=== PATIENT | female | born 1940 | race African-American/Black ===

== ENCOUNTER → 2016-09-14 | Outpatient (CLI) | payer MEDICARE, MEDICAID | LOC: RAD 13:04 | PROVIDERS: ATTEND Internal Medicine Geriatric Medicine | DX: J32.0 Chronic maxillary sinusitis (principal) | CPT/HCPCS: 70486 ==

== ENCOUNTER → 2017-04-08 | Outpatient (CLI) | payer MEDICARE, MEDICAID ==
--- NOTE | 2017-04-08 09:56 | ST Modified Barium Swallow ---
Recommendation - Recommendations Recommendations: 1) Recommend continue current diet. SUMMARY: Pt presents WNL oral and pharyngeal swallow, however RA notes prominent cricopharyngeous. No penetration or aspiration observed during MBSS. No radiographic findings of residuals observed on any consistency. At end of study pt observed to cough heavily and request emisis bag. Contents observed to be clear, did not contain whitish color of barium, brown color of pudding or gabbie cracker. Medical Diagnoses - Medical Diagnoses Medical Diagnosis Description & ICD-10 Code(s): dysphagia Other Medical Diagnoses/Co-Morbidities: Pacemaker placement and difibrillator placement (09/05/2012). COPD. Urinary incontinence. Reflux. WI. Hypothyroidism. Pneumonia states most recent 7-8 years ago. 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 Sinus issues- pt reports swollen. - ICD-10 Tx Diagnosis Coding (1) Dysphagia, pharyngoesophageal phase ICD-10 Code(s): R13.14 - DYSPHAGIA, PHARYNGOESOPHAGEAL PHASE ST Modified Barium Swallow - General Date: 04/08/17 Referring Physician: Dr Sanders Risks/Precautions: None Date of Onset: 04/08/14 Reason for Referral: dysphagia - History History obtained from: Patient -: Medical - Pt reports coughing and choking on solids and liquids with every meal. Pt reports globus sensation in lower neck. Pt reports "cough up slime" which she states is always "clear." Pt reports most recent PNA "7-8 years ago" and reports hx of bronchitis. Pt reports onset of symptoms approximately 4 years ago with worsening symptoms. Pt reports PMHx: "enlarged right sinus", thyroid surgery resulting in "clipping of vocal cord", WI, reflux, COPD. Pt presents with harsh vocal quality at baseline. Medications: Pt notes unable to recall all medications; reports synthroid, "3 different heart medications, acid reflux medication" pt then stated "thats all I know, but I have a total of 11 medications. Allergies: Penicillin. Dilantin. - Functional Status Prior Functional Status: INDEPENDENT: feeding Current Functional Limitations: feeding - Subjective Patient/caregiver goal(s): safe swallow Cognitive-Linguistic Function: WNL Speech Intelligibility: WNL Current Nutritional Means: PO Current PO diet: Regular Current symptoms: Coughing, c/o Globus sensation Pain: 0/5 - Objective Assessment: Upright, Left Lateral - Food Trials Used Food trials used: Thin liquids, Pureed, Regular The patient: Was Able to Self Feed - Oral-Motor Skills Velo-pharyngeal function: Unremarkable Laryngeal Function: Volitional Cough, Volitional Swallow - Assessment Oral prep: Normal Labial closure: Adequate Leakage: None Mastication: Adequate Lingual Movement: Normal Oral stage: Normal for this Procedure - Pharyngeal Stage Initiation of Pharyngeal Stage Reflex: Normal Decreased laryngeal elevation: No Reduced Velopharyngeal Closure: no Reduced pressure generation: No reduced tongue-based retraction: No Pre-swallow pooling in valleculae: None Pre-Swallow pooling in pyriforms: None Reduced Thyro-Hyoid approximation: No Reduced epiglottic excursion: No Reduced pharyngeal peristalsis/contraction: No Post-swallow residulas vallecular: None Post-Swallow residuals in pyriforms: None - Esophageal Stage Esophageal Stage: Per RA, prominent cricopharyngeous. - Fall Risk Assessment Medications/Conditions that increase fall risks include: Antidepressants, sedatives, anti-arrhythmic, diuretic, benzodiazipenes, neuroleptics. BP regulation problems, cardiac problems, balance or gait deficits, neurological problems. Is patient considered at risk for falls: no Fall Risk Actions Taken: No action needed - Behavioral Observations During evaluation process patient: was pleasant, was cooperative, able to answer questions, provided medical history - Treatment / Educational Needs: Treatment/Education Needs: Treatment consisted of patient education on the role of the Speech Pathologist. Patient's plan of care and golas were communicated as well as scheduling and attendance policies. Recommendations for initial home program were shared. Patient demonstrated understanding and verbalized agreement. - Impression/Summary Laryngeal Penetration: No Tracheal Aspiration: no Risk of Aspiration: Minimal - Recommendations NPO: no Solid diet recommendations: Regular Liquid Diet Modification: Thin Strict aspiration precautions: No Pt/Family education and followup with MD: Yes Dysphagia therapy with FLITCH HANGER: no Supervision: Independent Information, Precautions and Recommendations: Patient (Verbal) - Time Total Time: 25 - Plan of Care Strategies to optimize patient understanding include:: ongoing assessment of educational needs, implementation of educational strategies, and re-education. - - -: Thank you for the opportunity to work with this patient and his/her family. Should you have any questions about this patient's plan or progress, I can be reached at [phone]. Charge G Code? - - -: Yes ST F.L. Impairment Category - Rationale Based On Rationale Based On: Clin Find., Obj Measures - Swallowing Current G8996: CI 1-19% Impaired Goal G8997: CI 1-19% Impaired Discharge G8998: CI 1-19% Impaired
--- NOTE | 2017-04-08 18:27 | RADIOLOGY REPORT (SQ) ---
EXAM DESCRIPTION: YUSRA SWALLOW COMPLETED DATE/TIME: 04/08/2017 9:35 am REASON FOR STUDY: DYSPHAGIA R13.10 DYSPHAGIA, UNSPECIFIED COMPARISON: None. TECHNIQUE: Videofluoroscopic swallowing examination was performed in conjunction with speech patholo gy. Videofluoroscopic imaging was obtained and reviewed and these are the findings: RADIATION DOSE: TOTAL FLUOROSCOPY TIME: 1 minutes 2 seconds 1 fluoroscopy image saved to PACS. LIMITATIONS: None FINDINGS: The patient was brought into the fluoro room and placed upright on a modified barium swall ow chair. The patient was then given multiple consistencies mixed with barium to swallow under live fluoroscopic video guidance. According to the Speech Pathologist there was no laryngeal penetration or tracheal aspiration. Normal oral and pharyngeal transit time observed. No significant post swall ow residual seen. There is note of a prominent cricopharyngeus impression, posterior aspect of cervi meliton esophagus which did not significantly impede the swallow during the study. Please see speech pat hology report for further details and recommendations. IMPRESSION: NO EVIDENCE OF LARYNGEAL PENETRATION OR TRACHEAL ASPIRATION. CRICOPHARYNGEAL HYPERTROPH Y. PLEASE SEE SPEECH PATHOLOGIST REPORT FOR OTHER FINDINGS AND RECOMMENDATIONS. COMMENT: Quality ID [id number]: Final reports for procedures using fluoroscopy that document radiation exp osure indices, or exposure time and number of fluorographic images (if radiation exposure indices are not available) TECHNICAL DOCUMENTATION: JOB ID: [id number] [employer]- All Rights Reserved
== END ==
LOC: RAD 08:39
PROVIDERS: ATTEND Internal Medicine Pulmonary Disease
DX: R13.14 Dysphagia, pharyngoesophageal phase (principal)
CPT/HCPCS: 74230; 92611; G8996; G8997; G8998

== ENCOUNTER → 2017-06-21 | Outpatient (CLI) | payer MEDICARE, MEDICAID ==
--- NOTE | 2017-06-22 17:53 | WOMENS IMAGING REPORT ---
EXAM DESCRIPTION: 3D SCREENING MAMMO BILAT COMPLETED DATE/TIME: 06/21/2017 9:41 am REASON FOR STUDY: ROUTINE SCREENING; Z12.31 Z12.31 ENCNTR SCREEN MAMMOGRAM FOR MALIGNANT NEOPLASM O F KEV COMPARISON: Multiple since 2008 TECHNIQUE: Standard craniocaudal and mediolateral oblique views of each breast recorded using digita l acquisition and breast tomosynthesis. LIMITATIONS: None. FINDINGS: Findings present which are benign by mammographic criteria. No suspicious masses, calcifi cations or architectural distortion. Pertinent benign findings: Stable bilateral mammographic nodules and calcifications. Pacemaker over the left upper outer quadrant Read with the assistance of CAD. .[facility] - R2 Cenova Version 1.3 .[facility] Imaging - R2 Cenova Version 1.3 .[facility] - R2 Cenova Version 2.4 .[facility] [place] - R2 Cenova Version 2.4 .[facility] - R2 Hand Driller Version 9.2 Benign mammographic findings may include one or more of the following: Smooth masses, popcorn/rim/co arse calcifications, asymmetries, post-procedure changes, and lesions with long-standing stability. IMPRESSION: BENIGN MAMMOGRAPHIC FINDINGS. BIRADS 2 BREAST DENSITY: b. There are scattered areas of fibroglandular density. BIRAD: 2 BENIGN FINDING(S) RECOMMENDATION: RECOMMENDATION: ROUTINE SCREENING Please continue yearly bilateral screening tomosynthesis in June 2018 COMMENT: The patient has been notified of the results by letter per MQSA requirements. Additional no tification policies are in place for contacting patient with suspicious or incomplete findings. Quality ID #225: The [employer] recommends an annual screening mammogram for women aged 40 years or over. This facility utilizes a reminder system to ensure that all patients receive reminder letters, and/or direct phone calls for appointments. This includes reminders for routine scr eening mammograms, diagnostic mammograms, or other Breast Imaging Interventions when appropriate. Th is patient will be placed in the appropriate reminder system. The [employer] (ACR) has developed recommendations for screening MRI of the breast s in certain patient populations, to be used in conjunction with mammography. Breast MRI surveillanc e may be appropriate for women with more than 20% lifetime risk of developing breast cancer as deter mined by genetic testing, significant family history of the disease, or history of mantle radiation f or Hodgkins Disease. ACR Practice Guidelines 2008. DBT Technology DBT is a type of tomographic mammography. With conventional mammography, overlapping breast tissue ma y make lesions difficult to detect, even with good compression. DBT uses an x-ray tube that rotates a round the breast, taking images at different angles. These images are then combined to create thin sl ices of the breast that the radiologist can view as a 3D reconstruction. The Hologic unit can perform full-field digital mammograms (2D imaging); or DBT (3D imaging); or both, in a combination mode that quickly performs both the mammogram and the tomosynthesis scan while the breast is still compressed. PQRS 6045F: Fluoroscopic imaging is not utilized for breast tomosynthesis. TECHNICAL DOCUMENTATION: FINDING NUMBER: (1) ASSESSMENT: (1) JOB ID: [id number] [employer]- All Rights Reserved
== END ==
LOC: WI 10:05
PROVIDERS: ATTEND Internal Medicine Geriatric Medicine
DX: Z12.31 Encounter for screening mammogram for malignant neoplasm of breast (principal)
CPT/HCPCS: 77063; G0202; 77067

== ENCOUNTER → 2018-06-22 | Outpatient (CLI) | payer MEDICARE, MEDICAID ==
--- NOTE | 2018-06-22 12:18 | WOMENS IMAGING REPORT ---
EXAM DESCRIPTION: 3D SCREENING MAMMO BILAT COMPLETED DATE/TIME: 06/22/2018 11:12 am REASON FOR STUDY: BILATERAL SCREENING MAMMO 3 D/Z12.31 Z12.31 ENCNTR SCREEN MAMMOGRAM FOR MALIGNANT NEOPLASM OF KEV COMPARISON: [id number] TECHNIQUE: Standard craniocaudal and mediolateral oblique views of each breast recorded using digita l acquisition and breast tomosynthesis. LIMITATIONS: Battery pack left. FINDINGS: No masses, calcifications or architectural distortion. No areas of suspicion. Read with the assistance of CAD. .[facility] - R2 Cenova Version 1.3 .[facility] Imaging - R2 Cenova Version 1.3 .[facility] - R2 Cenova Version 2.4 .[facility] [place] - R2 Cenova Version 2.4 .[facility] - R2 Spinal Surgeon Version 9.2 IMPRESSION: NORMAL MAMMOGRAM. BIRADS 1. BREAST DENSITY: b. There are scattered areas of fibroglandular density. BIRAD: 1 NEGATIVE RECOMMENDATION: ROUTINE SCREENING COMMENT: The patient has been notified of the results by letter per SA requirements. Additional no tification policies are in place for contacting patient with suspicious or incomplete findings. Quality ID #225: The [employer] recommends an annual screening mammogram for women aged 40 years or over. This facility utilizes a reminder system to ensure that all patients receive reminder letters, and/or direct phone calls for appointments. This includes reminders for routine scr eening mammograms, diagnostic mammograms, or other Breast Imaging Interventions when appropriate. Th is patient will be placed in the appropriate reminder system. The [employer] (ACR) has developed recommendations for screening MRI of the breast s in certain patient populations, to be used in conjunction with mammography. Breast MRI surveillanc e may be appropriate for women with more than 20% lifetime risk of developing breast cancer as deter mined by genetic testing, significant family history of the disease, or history of mantle radiation f or Hodgkins Disease. ACR Practice Guidelines 2008. DBT Technology DBT is a type of tomographic mammography. With conventional mammography, overlapping breast tissue ma y make lesions difficult to detect, even with good compression. DBT uses an x-ray tube that rotates a round the breast, taking images at different angles. These images are then combined to create thin sl ices of the breast that the radiologist can view as a 3D reconstruction. The [employer] unit can perform full-field digital mammograms (2D imaging); or DBT (3D imaging); or both, in a combination mode that quickly performs both the mammogram and the tomosynthesis scan while the breast is still compressed. PQRS 6045F: Fluoroscopic imaging is not utilized for breast tomosynthesis. TECHNICAL DOCUMENTATION: FINDING NUMBER: (1) ASSESSMENT: (1) JOB ID: [id number] [employer]- All Rights Reserved Reading location - IP/workstation name: [email or web address]
== END ==
LOC: WI 10:03
PROVIDERS: ATTEND Internal Medicine Geriatric Medicine
DX: Z12.31 Encounter for screening mammogram for malignant neoplasm of breast (principal)
CPT/HCPCS: 77063; 77067

== ENCOUNTER → 2018-06-27 | Outpatient (CLI) | payer MEDICARE, MEDICAID | LOC: OD 09:23 | PROVIDERS: ATTEND Otolaryngology | DX: J30.9 Allergic rhinitis, unspecified (principal) | CPT/HCPCS: 36415; 82785; 86003 ==

== ENCOUNTER → 2018-08-22 | Day surgery (SDC) | payer MEDICARE, MEDICAID ==
[~2018-08-22] MED LIST: ALBUTEROL SULFATE 0.083% NEB 2.5 MG/3 ML AMPUL NEB ONE; PROPOFOL INJ 200 MG/20 ML VIAL IV ONE
--- NOTE | 2018-08-22 11:04 | RADIOLOGY REPORT (SQ) ---
EXAM DESCRIPTION: CHEST SINGLE VIEW COMPLETED DATE/TIME: 08/22/2018 10:31 am REASON FOR STUDY: LOW O2 STAT COMPARISON: CT chest 04/03/2015 Chest films 07/19/2015, 07/06/2014 EXAM PARAMETERS: NUMBER OF VIEWS: One view. TECHNIQUE: Single frontal radiographic view of the chest acquired. RADIATION DOSE: NA LIMITATIONS: None. FINDINGS: LUNGS AND PLEURA: No opacities, masses or pneumothorax. No pleural effusion. MEDIASTINUM AND HILAR STRUCTURES: No masses. Contour normal. HEART AND VASCULAR STRUCTURES: Massive cardiomegaly unchanged BONES: No acute findings. HARDWARE: Left-sided pacemaker/ defibrillator unchanged OTHER: No other significant finding. IMPRESSION: Massive cardiomegaly with left-sided pacemaker/ defibrillator unchanged. No acute infiltrates. No pleural effusion. No pneumothorax TECHNICAL DOCUMENTATION: JOB ID: [id number] [employer]- All Rights Reserved Reading location - IP/workstation name: [email or web address]
--- NOTE | 2018-08-22 11:42 | PDOC CONSULTATION ---
Consultation Consult Date: 08/22/18 Attending physician:: KOBY DELEON Consult reason:: procedure not attempted, patient has SOB and worsening of CHF History of Present Illness Admission Date/PCP: CHELSEA WATERMAN History of Present Illness: DANIELA GRIGGS is a 77 year old female patient has been scheduled for colonoscopy she was seen by Anesthesia and felt to have worsening CHF, patient is SOB and has crackles she also has lower extremity edema it was deemed that she could not tolerate sedation patient has recently seen Cardiology does not want to see Dr Ferrell she will sent back to tune up prior to having procedure done she had prepped but at this point , sedation may cause both cardiac and respiratory issues Past Medical History Cardiac Medical History: Reports: Atrial Fibrillation - Dx'ed 2011, Hyperlipidema - meds x 17 years, Hypertension - meds x 17 years, Pulmonary Embolism - Aug 2012, LT lung, Heart Murmur Denies: Congestive Heart Failure, Coronary Artery Disease, Myocardial Infarction, Peripheral Vascular Disease Pulmonary Medical History: Reports: Bronchitis - reports no additional episodes since smoking cessation, Chronic Obstructive Pulmonary Disease (COPD), Pneumonia - hospitalized x 3 episodes Denies: Asthma, Respiratory Failure, Sleep Apnea, Tuberculosis Neurological Medical History: Denies: Seizures Endocrine Medical History: Reports: Hypothyroidism - meds x 16 years Denies: Hyperthyroidism Renal/ Medical History: Denies: End Stage Renal Disease Malignancy Medical History: Denies: Breast Cancer, Cervical Cancer, Leukemia, Lung Cancer, Ovarian Cancer GI Medical History: Reports: Gastroesophageal Reflux Disease - meds x 19 years Denies: Crohn's Disease, Hepatitis, Hiatal Hernia Musculoskeltal Medical History: Reports: Arthritis Denies: Fibromyalgia Psychiatric Medical History: Denies: Bipolar Disorder, Dementia, Depression, Post Traumatic Stress Disorder Hematology: Reports: Anemia - 4 units PRBC's post-op LT RIMMA 08/08/14 Denies: Hemophilia, Sickle Cell Disease Infectious Medical History: Denies: HIV Past Surgical History Past Surgical History: Reports: Appendectomy - incidental with SCOT BSO, Herniorrhaphy - umbilical 1999, Hysterectomy, Pacemaker - 2011 Denies: Amputation, Section, Cholecystectomy, Colostomy, Coronary Artery Bypass Graft, Gastric Bypass Surgery, Mastectomy, Tonsillectomy, Tubal Ligation Social History Smoking Status: Never Smoker Frequency of Alcohol Use: None Hx Recreational Drug Use: No Hx Prescription Drug Abuse: No Family History Parental Family History Reviewed: Yes Children Family History Reviewed: Unknown Sibling(s) Family History Reviewed.: Unknown Medication/Allergy Home Medications: Levothyroxine Sodium [Synthroid] 112 mcg PO QAM 08/15/12 Omeprazole [Prilosec 20 mg Capsule] 40 mg PO QAM 08/15/12 Amiodarone HCl [Cordarone 200 mg Tablet] 200 mg PO QAM 02/22/13 Spironolactone 25 mg PO QAM 02/22/13 Valsartan [Diovan 40 mg Tablet] 40 mg PO QAM 02/22/13 Metoprolol Succinate [Toprol Xl] 25 mg PO BID 10/26/13 Allopurinol [Zyloprim 300 mg Tablet] 300 mg PO QAM 07/26/14 Cascade-3 Fatty Acids/Fish Oil [Cascade 3 Fish Oil Softgel] 1 each PO QAM 07/26/14 Multivitamin [Daily Vitamin] 1 each PO QAM 11/29/14 Albuterol Sulfate [Proair Hfa Inhalation Aerosol 8.5 gm Mdi] 2 puff IH Q6 PRN Furosemide [Lasix] 40 mg PO BID 08/22/18 Levocetirizine Dihydrochloride [Allergy Relief] 5 mg PO DAILY 08/22/18 Loratadine 10 mg PO DAILY 08/22/18 Allergies/Adverse Reactions: Penicillins Allergy (Severe, Verified 08/22/18 08:08) swelling of tongue, rash phenytoin sodium extended [From Dilantin] Allergy (Severe, Verified 08/22/18 08: 08) rash Review of Systems Constitutional: ABSENT: fever(s), headache(s), night sweats, weakness Eyes: ABSENT: visual disturbances Ears: ABSENT: hearing changes Nose, Mouth, and Throat: ABSENT: mouth pain Cardiovascular: PRESENT: edema, orthropnea Respiratory: PRESENT: dyspnea. ABSENT: hemoptysis, sputum Gastrointestinal: ABSENT: dysphagia, hematemesis, hematochezia, melena, nausea, vomiting Genitourinary: ABSENT: dysuria, hematuria Musculoskeletal: ABSENT: deformity Neurological: ABSENT: syncope, tingling, tremor(s), vertigo Endocrine: ABSENT: polydipsia, polyphagia, polyuria Hematologic/Lymphatic: ABSENT: easy bruising Physical Exam Vital Signs: Temp Pulse Resp BP Pulse Ox 98.0 F 65 18 135/59 H 98 08/22/18 08:18 08/22/18 08:18 08/22/18 08:18 08/22/18 08:18 08/22/18 08:18 Intake & Output 08/21/18 08/22/18 08/23/18 06:59 06:59 06:59 Intake Total 0 Balance 0 Weight 91.63 kg General appearance: PRESENT: mild distress, well-developed, well-nourished Head exam: PRESENT: atraumatic, normocephalic Eye exam: PRESENT: EOMI, PERRLA. ABSENT: nystagmus, periorbital swelling, scleral icterus Mouth exam: PRESENT: moist, neck supple Teeth exam: ABSENT: edentulous Throat exam: ABSENT: tonsillar exudate, tonsillogmegaly Neck exam: ABSENT: meningismus, tenderness, thyromegaly Respiratory exam: PRESENT: crackles, symmetrical. ABSENT: tachypnea Cardiovascular exam: PRESENT: RRR GI/Abdominal exam: PRESENT: soft. ABSENT: rebound, rigid, tenderness Extremities exam: PRESENT: pedal edema. ABSENT: joint swelling Musculoskeletal exam: PRESENT: full ROM Neurological exam: PRESENT: alert, awake, oriented to time, oriented to situation, CN II-XII grossly intact Focused psych exam: ABSENT: restlessness Skin exam: PRESENT: normal color. ABSENT: mottled, pallor, petechiae, urticaria Results Impressions: Chest X-Ray 08/22/18 08:56 IMPRESSION: Massive cardiomegaly with left-sided pacemaker/ defibrillator unchanged. No acute infiltrates. No pleural effusion. No pneumothorax Assessment & Plan - Diagnosis (1) Congestive heart failure Plan: not able to undergo sedation will need to see Cardiology for diuresis prior to sedation patient is in agreement Anesthesia agrees (2) Anemia due to acute blood loss Plan: once respiratory function has improved can undergo procedure will reschedule for patient - Time Time Spent: 50 to 70 Minutes
[2018-08-22 11:54] VITALS: BP 146/86
--- NOTE | 2018-08-22 13:19 | EKG REPORT ---
SEVERITY:- ABNORMAL ECG - ATRIAL-VENTRICULAR DUAL-PACED COMPLEXES : Confirmed by: Titi Tracey MD 22-Aug-2018 13:19:05
== END ==
LOC: END 07:52
PROVIDERS: ATTEND Internal Medicine Gastroenterology
DX: I11.0 Hypertensive heart disease with heart failure (principal); I50.9 Heart failure, unspecified; D62 Acute posthemorrhagic anemia; R06.02 Shortness of breath; Z53.9 Procedure and treatment not carried out, unspecified reason; R19.4 Change in bowel habit; I48.91 Unspecified atrial fibrillation; E78.5 Hyperlipidemia, unspecified; Z86.711 Personal history of pulmonary embolism; R01.1 Cardiac murmur, unspecified; J44.9 Chronic obstructive pulmonary disease, unspecified; K21.9 Gastro-esophageal reflux disease without esophagitis; M19.90 Unspecified osteoarthritis, unspecified site; Z95.0 Presence of cardiac pacemaker; Z79.899 Other long term (current) drug therapy; Z79.51 Long term (current) use of inhaled steroids; Z88.0 Allergy status to penicillin; Z88.8 Allergy status to other drugs, medicaments and biological substances
CPT/HCPCS: 71045; 93005; 93010; A9270; J2704

== ENCOUNTER → 2019-07-04 | Outpatient (CLI) | payer MEDICARE, MEDICAID ==
--- NOTE | 2019-07-04 14:03 | WOMENS IMAGING REPORT ---
EXAM DESCRIPTION: 3D SCREENING MAMMO BILAT COMPLETED DATE/TIME: 07/04/2019 12:01 pm REASON FOR STUDY: Z12.31 SCREENING MAMMO Z12.31 ENCNTR SCREEN MAMMOGRAM FOR MALIGNANT NEOPLASM OF B RE COMPARISON: 2015 to 2017 EXAM PARAMETERS: Views: Standard craniocaudal and mediolateral oblique views of each breast recorded using digital acquisition and breast tomosynthesis. Read with the assistance of CAD. .[facility] - [employer] Manager Version 9.2 LIMITATIONS: Pacemaker battery over the left breast FINDINGS: No suspicious masses, suspicious calcifications or architectural distortion. No areas of c oncern. IMPRESSION: NEGATIVE MAMMOGRAM. BIRADS 1. BREAST DENSITY: b. There are scattered areas of fibroglandular density. BIRAD: ASSESSMENT: 1 NEGATIVE RECOMMENDATION: ROUTINE SCREENING COMMENT: The patient has been notified of the results by letter per MQSA requirements. Additional no tification policies are in place for contacting patient with suspicious or incomplete findings. Quality ID #[id number]: The [employer] recommends an annual screening mammogram for women aged 40 years or over. This facility utilizes a reminder system to ensure that all patients receive reminder letters, and/or direct phone calls for appointments. This includes reminders for routine scr eening mammograms, diagnostic mammograms, or other Breast Imaging Interventions when appropriate. Th is patient will be placed in the appropriate reminder system. TECHNICAL DOCUMENTATION: FINDING NUMBER: (1) ASSESSMENT: (1) JOB ID: [id number] [employer]- All Rights Reserved Reading location - IP/workstation name: [email or web address]
== END ==
LOC: WI 11:05
PROVIDERS: ATTEND Internal Medicine Geriatric Medicine
DX: Z12.31 Encounter for screening mammogram for malignant neoplasm of breast (principal)
CPT/HCPCS: 77063; 77067

== ENCOUNTER → 2020-03-07 | Outpatient (CLI) | payer MEDICARE, MEDICAID ==
--- NOTE | 2020-03-08 08:54 | RADIOLOGY REPORT (SQ) ---
EXAM DESCRIPTION: ARTERIAL LOWER EXTREM BILAT IMAGES COMPLETED DATE/TIME: 03/07/2020 4:48 pm REASON FOR STUDY: PVD I73.9 PERIPHERAL VASCULAR DISEASE, UNSPECIFIED COMPARISON: None. TECHNIQUE: Dynamic and static christianson scale and color images acquired of the lower extremity arteries. Additional selected spectral images recorded. LIMITATIONS: None. FINDINGS: RIGHT LEG: INFLOW ARTERIES: Normal, no obstruction evident. FEMORAL ARTERIES:Multiphasic waveforms. Normal, no velocity elevation to suggest focal stenosis. Norm al color Doppler evaluation. No aneurysm. POPLITEAL ARTERY:Multiphasic waveforms. Normal, no velocity elevation to suggest focal stenosis. Norm al color Doppler evaluation. No aneurysm. PATENT TIBIOPERONEAL TRUNK AND 3 VESSEL RUNOFF: Yes, normal vessels. OTHER: No other significant finding. LEFT LEG: INFLOW ARTERIES: Normal, no obstruction evident. FEMORAL ARTERIES:Multiphasic waveforms. Normal, no velocity elevation to suggest focal stenosis. Norm al color Doppler evaluation. No aneurysm. POPLITEAL ARTERY:Multiphasic waveforms. Normal, no velocity elevation to suggest focal stenosis. Norm al color Doppler evaluation. No aneurysm. PATENT TIBIOPERONEAL TRUNK AND 3 VESSEL RUNOFF: Yes, normal vessels. OTHER: No other significant finding. IMPRESSION: NORMAL BILATERAL LOWER EXTREMITY ARTERIAL DOPPLER. TECHNICAL DOCUMENTATION: JOB ID: [id number] [employer]- All Rights Reserved Reading location - IP/workstation name: [email or web address]
== END ==
LOC: SP 08:38
PROVIDERS: ATTEND Internal Medicine Geriatric Medicine
DX: I73.9 Peripheral vascular disease, unspecified (principal)
CPT/HCPCS: 93925